=== PATIENT | female | born 1950 | race Caucasian/White ===

== ENCOUNTER 2022-04-03 06:17 | Observation (INO) | payer OTHER ==
--- NOTE | 2022-03-29 10:48 | RAD REPORT ---
EXAM DESCRIPTION: RAD - Chest Pa And Lat (2 Views) - 03/29/2022 10:42 am CLINICAL HISTORY: pre op for surgery COMPARISON: No comparisons FINDINGS: Lines: None. Lungs: No evidence of edema or pneumonia. Pleural: No significant pleural effusions or pneumothorax. Cardiac: The heart size is within normal limits. Mediastinum: Within normal limits. Bones: No acute fractures. Other: None IMPRESSION: No acute cardiopulmonary disease.
[2022-03-29 10:53] LABS: Absolute Lymphocytes (CBC) 2.5 K/uL (0.7-4.9); Hematocrit 42.5 % (36.0-45.0); Lymphocytes % 37.9 % (15.3-44.8); MCV 96.1 fL (80-100); MPV 7.5 fL (7.6-11.3); RBC Red Blood Cell Count 4.42 M/uL (3.86-4.86)
[2022-03-29 10:58] LABS: Protime INR 1.06
[2022-03-29 11:15] LABS: SARS-CoV-2 Antigen Rapid Res Negative (Negative)
[2022-03-29 11:15] LABS: Potassium 4.5 mmol/L (3.5-5.1)
--- NOTE | 2022-03-30 17:24 | EKG ---
Test Date: 2022-03-29 Test Time: 10:27:57 Choreography Director: PILAR MEASUREMENT RESULTS: Intervals: Rate: 71 [place]: 176 QRSD: 86 QT: 386 QTc: 419 [place]: P: 77 [place]: 176 QRS: 68 T: 86 INTERPRETIVE STATEMENTS: Normal sinus rhythm Nonspecific T wave abnormality Abnormal ECG No previous ECG available for comparison Electronically Signed On 03-30-22 17:24:10 AUDIO VISUAL TECHNICIAN by Laurent Roa
[2022-04-03] MEDS ORDERED: Ringers Lactate 1,000 ML IV ONE ×2 (06:49→09:06)
[2022-04-03] MEDS ORDERED: CEFAZOLIN SODIUM 2 GM/VIAL ONE (06:49)
[2022-04-03] MEDS ORDERED: dexAMETHasone 4 MG/ML VIAL ONE ×2 (07:00→07:15)
[2022-04-03] MEDS ORDERED: LIDOCAINE 1% MPF 2 ML AMPULE ONE (07:00)
[2022-04-03] MEDS ORDERED: LIDOCAINE 1% MPF 5 ML VIAL ONE (07:14)
[2022-04-03] MEDS ORDERED: MIDAZOLAM HCL 2 MG/2 ML INJ ONE (07:15)
[2022-04-03] MEDS ORDERED: FENTANYL CITR 100 MCG/2 ML ONE ×2 (07:15→09:44)
[2022-04-03] MEDS ORDERED: TRANEXAMIC ACID 1,000 MG/10 ML VIAL IV ONE (07:33)
[2022-04-03] MEDS ORDERED: propofoL 200 MG/20 ML VIAL IV ONE (08:00)
[2022-04-03] MEDS ORDERED: LIDOCAINE 2% MPF 5 ML VIAL ONE (08:01)
[2022-04-03] MEDS ORDERED: ROCURONIUM 50 MG/5 ML VIAL IV ONE (08:02)
[2022-04-03] MEDS ORDERED: ONDANSETRON 4 MG/2 ML VIAL ONE (08:03)
[2022-04-03] MEDS ORDERED: dexAMETHasone 10 MG/ML VIAL ONE (08:58)
[2022-04-03] MEDS ORDERED: GLYCOPYRROLATE 0.2 MG/ML SYR ONE ×2 (09:24→10:24)
[2022-04-03] MEDS ORDERED: NEOSTIGMINE 1 MG/ML -5 ML ONE (10:25)
[2022-04-03] MEDS: HYDROMORPHONE HCL 1 MG/ML INJ ONE ×4 (11:09→11:46)
--- NOTE | 2022-04-03 11:12 | P.BOP ---
Preoperative diagnosis: right knee osteoarthritis Postoperative diagnosis: same Primary procedure: right total knee arthroplasty Quilt Maker: NONE,NONE Estimated blood loss: 40 cc Specimen: right knee bone remnants Findings: see dictation Anesthesia: General Complications: None Implants: Biomet Jovana 6 CR femur, D tibia, 29 patella, 10 CR poly Fluids & blood products: per anesthesia record; TT: 70 mins @ 300 mmHg Transferred to: Recovery Room Condition: Good
[2022-04-03] MEDS ORDERED: DOCUSATE NA 100 MG CAP PO PRN (11:13)
[2022-04-03] MEDS ORDERED: ACETAMINOPHEN 325 MG TABLET PO PRN (11:13)
[2022-04-03] MEDS ORDERED: ONDANSETRON 4 MG/2 ML VIAL IV PRN (11:13)
[2022-04-03] MEDS ORDERED: TRAMADOL HCL 50 MG TAB PO PRN (11:15)
--- OUTSIDE RECORDS SUMMARY | 2022-04-03 11:23 | XMS REPORT | Continuity of Care Document ---
:1950 Author Organization [facility] t Address [address] [place] [address] Care Team Providers Name Role Phone Pcp, Patient Does Not Have A Primary Care Physician [id number] Alex Woods MD Attending Clinician ALEX WOODS Attending Clinician Unavailable Jackson Cunningham Attending Clinician Payers Payer Name Policy Type Policy Number Effective Date Expiration Date S ource Problems Condition Condition Condition Status Onset Resolution Last Treating Co mments Source Name Details Category Date Date Treatment Clinician Date No known No known Disease Unive rs active active ity of problems problems [facility] Allergies, Adverse Reactions, Alerts Allergy Allergy Status Severity Reaction(s) Onset Inactive Treating Comm ents Source Name Type Date Date Clinician NO KNOWN Drug Active Univers ALLERGIE Class ity of S [facility] Social History Social Habit Start Date Stop Date Quantity Comments Source History SDOH University o f Alcohol Std [place] [facility] Drinks Branch History SDOH University o f Alcohol Binge [place] [facility] Branch History SDOH University o f Alcohol Comment [place] [facility] Exposure to Not sure University of SARS-CoV-2 [facility] (event) Branch Tobacco use and 2021-01-18 2021-01-18 Never used Universit y of exposure 00:00:00 00:00:00 [facility] Branch Alcohol intake 2021-01-18 2021-01-18 Lifetime University of 00:00:00 00:00:00 non-drinker [place] [facility] (finding) Branch History SDOH 2021-01-18 2021-01-18 1 University o f Alcohol Frequency 00:00:00 00:00:00 [place] [facility] Sex Assigned At [birth year] Universit y of 00:00:00 00:00:00 [facility] Smoking Status Start Date Stop Date Source Never smoker [facility] Medications Ordered Filled Start Stop Current Ordering Indication Dosage Frequency Signature Comments Components Source Medication Medication Date Date Medication? Clinician (SIG) Name Name citalopram 2020-04 Yes 10mg Take 10 mg U nivers (CELEXA) 10 0-14 by mouth ity of mg tablet 08:52: daily. [address] oxymetazoli 2020-04 Yes Use in [facility] ers ne HCl 0-14 each ity of (NASAL 08:52: nostril. [place] SPRAY [facility] Medical [facility] SIN[facility] Branch NASAL) citalopram 2020-04 Yes 10mg Take 10 mg U nivers (CELEXA) 10 0-14 by mouth ity of mg tablet 08:52: daily. [address] oxymetazoli 2020-04 Yes Use in [facility] ers ne HCl 0-14 each ity of (NASAL 08:52: nostril. [place] SPRAY [facility] Medical [facility] SIN[facility] Branch NASAL) montelukast 2020-04 Yes 10mg Take 10 mg Univers (SINGULAIR) 0-14 by mouth. ity of 10 mg 08:52: [place] tablet 30 [facility] [place] gabapentin 2020-04 Yes 400mg Take 400 Un terry 400 mg 0-14 mg by ity of capsule 08:52: mouth 3 [place] 30 (three) Medical times Branch daily. oxyCODONE-a 2020-04 Yes 1{tbl} Take 1 Un terry cetaminophe 0-14 tablet by ity of n 08:52: mouth [place] (PERCOCET) 30 every 4 Medica l 10-325 mg (four) Branch per tablet hours as needed for Pain. citalopram 2020-04 Yes 10mg Take 10 mg U nivers 10 mg 0-14 by mouth ity of tablet 08:52: daily. [address] ALPRAZolam 2020-04 Yes 1mg Take 1 mg Un terry (XANAX) 1 0-14 by mouth 3 ity of mg tablet 08:52: (three) [place] 30 times Medical daily. Branch montelukast 2020-04 Yes 10mg Take 10 mg Univers (SINGULAIR) 0-14 by mouth. ity of 10 mg 08:52: [place] tablet 30 [facility] [place] gabapentin 2020-04 Yes 400mg Take 400 Un terry 400 mg 0-14 mg by ity of capsule 08:52: mouth 3 [place] 30 (three) Medical times Branch daily. oxyCODONE-a 2020-04 Yes 1{tbl} Take 1 Un terry cetaminophe 0-14 tablet by ity of n 08:52: mouth [place] (PERCOCET) 30 every 4 Medica l 10-325 mg (four) Branch per tablet hours as needed for Pain. citalopram 2020-04 Yes 10mg Take 10 mg U nivers 10 mg 0-14 by mouth ity of tablet 08:52: daily. [address] ALPRAZolam 2020-04 Yes 1mg Take 1 mg Un terry (XANAX) 1 0-14 by mouth 3 ity of mg tablet 08:52: (three) [place] 30 times [facility] daily. Branch Vital Signs Vital Name Observation Time Observation Value Comments Source Systolic blood 2021-01-18 13:47:00 141 mm[Hg] [facility]iver [facility] Diastolic blood 2021-01-18 13:47:00 79 mm[Hg] [facility] Heart rate 2021-01-18 13:47:00 61 /min [facility] Body height 2021-01-18 13:47:00 160 cm [facility] Body weight 2021-01-18 13:47:00 72.576 kg [facility] BMI 2021-01-18 13:47:00 28.34 kg/m2 [facility] Procedures Procedure Date / Time Performed Performing Clinician Sourlinh e XR KNEE 3 VW 2021-01-18 14:18:[address] [facility] Encounters Start End Encounter Admission Attending Care Care Encounter Source Date/Time Date/Time Type Type Clinicians Facility Department ID 2022-02-25 Outpatient [facility] [id number] Common 17:12:01 [facility] 2021-11-01 Outpatient [facility] [id number] Common 12:48:00 [facility] 2021-08-27 Outpatient [facility] [id number] Common 13:17:14 [facility] 2021-05-02 Outpatient [facility] Common 14:27:27 [facility] 2021-01-18 2021-01-18 Hospital [facility] [id number] Univers 08:55:00 23:59:00 Encounter Alex [facility] [id number] ity of [place] [id number] Lalito as Enoch?Blea [phone] Al americo alexandr [address] [facility] 2021-01-18 2021-01-18 Outpatient [facility] [id number] Univers 08:55:00 08:55:00 ALEX [id number] 2021-01-18 2021-01-18 Office Jackson Johnson [facility] [id number] Univers 08:38:21 08:53:21 Visit Alex Woods [facility] [id number] ity of [place] [id number] Lalito as Enoch?Blea [phone] Al earnestragini deshaun [address] [facility] 2021-01-18 2021-01-18 Outpatient R [facility] [id number] Univers 08:30:00 08:30:00 ALEX [facility] Results This patient has no known results.
[2022-04-03 11:36] LABS: Hematocrit 38.9 % (36.0-45.0)
--- NOTE | 2022-04-03 11:36 | RAD REPORT ---
EXAM DESCRIPTION: RAD - Knee Right 2 View - 04/03/2022 11:27 am CLINICAL HISTORY: Post Op COMPARISON: No comparisons FINDINGS/IMPRESSION: Status post right total knee arthroplasty. No evidence immediate hardware compl ications or acute fractures. Small volume of fluid and gas within the joint is not unexpected. Normal alignment.
[2022-04-03 11:56] VITALS: O2SAT 97
[2022-04-03] MEDS: MORPHINE 2 MG/ML SYR IV PRN ×2 (13:27→18:28)
[2022-04-03] MEDS: GABAPENTIN 300 MG CAP PO SCH ×3 (13:27→20:16)
[2022-04-03] MEDS: ALPRAZOLAM 1 MG TABLET PO SCH ×2 (15:52→20:16)
[2022-04-03 16:57] VITALS: BMI 28.7
[2022-04-03] MEDS: CEFAZOLIN 1 GM in NA CHLORIDE 0.9% 50 ML IVPB SCH (17:20)
[2022-04-03] MEDS ORDERED: INFLUENZA VACCINE (for 6+ mo) 0.5 ML DOSE IMVAC ONE (18:00)
[2022-04-03] MEDS: HYDROCODONE/APAP 7.5/325 MG TAB PO PRN (20:20)
[2022-04-03] MEDS ORDERED: OLANZapine 2.5 MG TAB PO SCH (21:00)
[2022-04-04] MEDS: MORPHINE 2 MG/ML SYR IV PRN ×2 (01:12→05:24)
[2022-04-04] MEDS: CEFAZOLIN 1 GM in NA CHLORIDE 0.9% 50 ML IVPB SCH ×2 (01:12→10:17)
[2022-04-04] MEDS: HYDROCODONE/APAP 7.5/325 MG TAB PO PRN ×2 (01:54→07:40)
[2022-04-04 04:55] LABS: Hematocrit 35.6 % (36.0-45.0)
[2022-04-04] MEDS ORDERED: ENOXAPARIN 30 MG/0.3 ML SQ SCH (06:00)
[2022-04-04] MEDS ORDERED: PANTOPRAZOLE 40MG TABLET PO SCH (06:30)
[2022-04-04 08:09] VITALS: BP 119/81; TEMP 97.8
[2022-04-04] MEDS ORDERED: CITALOPRAM 10 MG TABLET PO SCH (09:00)
[2022-04-04] MEDS ORDERED: MONTELUKAST 10 MG TAB PO SCH (09:00)
[2022-04-04] MEDS ORDERED: [UNRECOGNIZED DRUG - OTHER] PO SCH (09:00)
[2022-04-04] MEDS ORDERED: FEXOFENADINE PO SCH (09:00)
[2022-04-04] MEDS ORDERED: PSEUDOEPHEDRINE PO SCH (09:00)
[2022-04-04] MEDS ORDERED: CELECOXIB 100 MG CAPSULE PO SCH (09:00)
[2022-04-04] MEDS: GABAPENTIN 300 MG CAP PO SCH (10:16)
[2022-04-04] MEDS: ALPRAZOLAM 1 MG TABLET PO SCH (10:18)
--- NOTE | 2022-04-04 12:12 | P.DS ---
Admission Date: 04/03/22 Discharge Date: 04/04/22 Disposition: DC HOME/HOME HEALTH CARE Discharge Condition: GOOD Consultations: none Procedures: R TKA 03/24/2022 Brief History of Present Illness: 82-year-old female that underwent right total knee arthroplasty on April 03, 2022 without complication. Hospital Course: Patient was admitted to the floor postoperatively in stable condition. Physical therapy was consulted to aid with mobilization. Pain was controlled and her vital signs remained stable postoperatively. She was discharged on April 04, 2022 in stable condition. She will begin Xarelto tomorrow for DVT prophylaxis. She was started on Lovenox while in the hospital for DVT prophylaxis. She will follow-up in clinic in 2 weeks for wound check. Vital Signs/Physical Exam: Temp Pulse Resp BP Pulse Ox 97.8 F 75 16 119/81 95 04/04/22 08:00 04/04/22 08:00 04/04/22 08:00 04/04/22 08:00 04/04/22 08:00 Laboratory Data at Discharge: WBC 6.50 K/uL (4.3-10.9) 03/29/22 10:33 Hgb 12.1 g/dL (12.0-15.0) 04/04/22 04:20 Hct 35.6 % (36.0-45.0) L 04/04/22 04:20 Plt Count 287 K/uL (152-406) 03/29/22 10:33 PT 11.7 SECONDS (9.5-12.5) 03/29/22 10:33 INR 1.06 03/29/22 10:33 APTT 32.0 SECONDS (24.3-36.9) 03/29/22 10:33 Sodium 137 mmol/L (136-145) 03/29/22 10:33 Potassium 4.5 mmol/L (3.5-5.1) 03/29/22 10:33 BUN 22 mg/dL (7-18) H 03/29/22 10:33 Creatinine 0.89 mg/dL (0.55-1.02) 03/29/22 10:33 Glucose 115 mg/dL (74-106) H 03/29/22 10:33 Home Medications: ALPRAZolam [Xanax*] 1 tab PO TID 03/29/22 Citalopram [Celexa*] 1 tab PO DAILY 03/29/22 Fexofenadine/Pseudoephedrine [Dori-D 24 Hour Tablet] 1 tab PO DAILY 03/29/22 Gabapentin 1 tab PO QID 03/29/22 Montelukast [Singulair*] 1 tab PO DAILY 03/29/22 OLANZapine [Zyprexa*] 1 tab PO BEDTIME 03/29/22 Omeprazole [Prilosec] 1 tab PO DAILY 03/29/22 Oxycodone HCl/Acetaminophen [Oxycodone-Acetaminophen 10-325] 1 tab PO QID 03/29/22 Physician Discharge Instructions: Keep dressing clean dry and intact. Use JELENA hose for 2 weeks postoperatively. Begin Xarelto tomorrow April 05 with breakfast and take once daily. Follow- up with Dr. Linder in 2 to 3 weeks. Diet: Regular Activity: Weight bearing as tolerated Followup: Yaniv Linder MD [Primary Care Provider] - 1-2 Weeks
--- NOTE | 2022-04-04 15:59 | P.OP ---
Preoperative diagnosis: right knee osteoarthritis Postoperative diagnosis: same Primary procedure: right total knee arthroplasty Anesthesia: general Estimated blood loss: 40 cc Specimen: right knee bone remnants Findings: see dictation Operative Technique: Indication For Procedure: Pam is an 72 year-old female presenting to my clinic with signs, symptoms and x-ray findings consistent with right knee osteoarthritis. I discussed with the patient at length risks and benefits associated with operative and nonoperative treatment. She had failed conservative treatment measures including corticosteroid injections, viscosupplementation injections and had significant difficulties with ADLs secondary to her pain. We discussed operative treatment and elected to proceed with right total knee arthroplasty. She expressed understanding and elected to proceed with operative treatment. Description Of Procedure: After informed consent was obtained, the patient was identified in the preoperative holding area. The right lower extremity was marked. The patient was then taken to the PACU where she underwent a right lower extremity adductor canal block performed by Anesthesia. She was then taken to the operating room, transferred to the operating table in supine fashion, and placed under general anesthesia. Her right lower extremity was then prepped and draped in usual sterile fashion. A time-out was initiated. The correct patient and procedure were confirmed and identified. The patient did receive her preoperative prophylactic antibiotics. The right lower extremity was then exsanguinated and tourniquet was inflated to 300 mmHg. Approximately 15 cm longitudinal incision was made centered over the anterior aspect of the right knee. Dissection was then taken to the extensor mechanism and a medial parapatellar arthrotomy was performed. The patella was everted and dislocated laterally with some difficulty and the knee was flexed and the fat pad was excised. Medial meniscus, lateral meniscus and ACL were all excised exposing the distal femur. Excess hypertrophic synovium was also excised within the suprapatellar pouch. The patient had an MRI of her right knee preoperatively for surgical planning and creation of cutting blocks. The cutting block was then placed over the distal femur and pins were then placed. The distal femoral cutting block was then placed over the pins. Knee joint was then used to ensure proper depth cut and the distal femur was then cut. The chamfer cutting guide was then placed over the distal end of the femur. Anterior, posterior cuts as well as anterior and posterior chamfer cuts were then made again confirming proper depth of the cut using an Jorge wing. Excess bone remnants were then sent to pathology for further evaluation. Next, attention was taken to the proximal tibia. A tibial jig and tibial cutting block was then placed on proximal aspect of the tibia and locked into position. Pins were then placed and alignment guide was then used to confirm proper alignment of the cut and then coronal and sagittal planes. Once this was confirmed, the cutting jig was placed over the pins and the proximal tibia was cut. Sizing trays were then selected and size 10 mm spacer was used. After this was completed there was good overall balance in flexion and extension with the 10 mm spacer. Next, the trial implants were then placed using the size 6 standard CR femur and a size D tibia with an 10 mm poly. There was overall good range of motion and good stability trial implants were then removed. The wound was then irrigated thoroughly with normal saline and the knee was then injected with 30 cc of 0.5% Marcaine both in the posterior capsule and medial and lateral gutters as well as quadriceps tendon and periosteum. The tibia was then punched and marked after the patella button was placed. The femur was drilled. The cement was then prepared on the back table. Cement was then placed first on the tibial surface followed by size D tibia. Excess cement was removed with Wright elevators. Size 6 standard CR femur was then placed on the distal femur after cement was placed on the distal femur. Excess cement was then removed and a size 10 mm trial poly was then placed. The knee was held in extension as the cement hardened. Undersurface of the patella was prepared debriding osteophytes using rongeurs as well as osteophytes had been debrided off the proximal tibia with rongeurs. Cement was placed on the undersurface of the patella after it was cut and a size 29 patella was placed. Once the cement was hardened, the knee was ranged, there was good overall stability both in flexion, extension and as well as stability with varus and valgus stresses. Trial poly was then sánchez oniel and a size 10 mm CR poly was then placed and locked into position. The knee was then ranged again. There was good overall range of motion both for flexion and extension with good stability. The wound was then irrigated again thoroughly with normal saline using pulse lavage. Tourniquet was let down. Hemostasis was achieved using Bovie electrocautery. Extensor mechanism was then approximated using a #1 Vicryl both in interrupted and running fashion. The fascia was then approximated using 0 Vicryl. Subcutaneous tissue was approximated with a 2-0 Vicryl. Skin was approximated using abner. Sterile dressings were applied. The patient was awakened and transferred back in stable condition Complications: None Implants: Biomet Jovana Persona 6 CR femur, D tibia, 10 CR poly, 29 patella Fluids & blood products: per anesthesia record; TT: 70 mins @ 300 mmHg Transferred to: Recovery Room Condition: Good
== END 2022-04-04 12:57 | disposition home health service (06) ==
LOC: OR 06:17 → 2ND 11:13
PROVIDERS: ADMIT Orthopaedic Surgery Sports Medicine; ATTEND Orthopaedic Surgery Sports Medicine
PROC: 0SRC069 Replacement of Right Knee Joint with Oxidized Zirconium on Polyethylene Synthetic Substitute, Cemented, Open Approach (ICD-10-PCS; principal; 2022-04-03 08:00)
DX: M17.11 Unilateral primary osteoarthritis, right knee (principal); Z20.822 Contact with and (suspected) exposure to COVID-19
CPT/HCPCS: 36415; 71046; 80048; 85014; 85018; 85025; 85610; 85730; 87811; 88304; 88311; 93005; 94010; 97116; 97139; 97161; 97530; C1776; J0690; J1100; J1170; J1650; J2001; J2250; J2270; J2405; J2704; J2710; J3010; J7120

== ENCOUNTER 2023-01-22 05:59 | Observation (INO) | payer OTHER ==
[2023-01-17 10:07] LABS: Absolute Lymphocytes (CBC) 2.4 K/uL (0.7-4.9); Hematocrit 41.6 % (36.0-45.0); Lymphocytes % 39.1 % (15.3-44.8); MCV 96.1 fL (80-100); MPV 7.2 fL (7.6-11.3); Platelets 270 thou/uL (152-406); RBC Red Blood Cell Count 4.33 M/uL (3.86-4.86)
--- NOTE | 2023-01-17 10:09 | RAD REPORT ---
EXAM DESCRIPTION: RAD - Chest Pa And Lat (2 Views) - 01/17/2023 10:03 am CLINICAL HISTORY: pre op for surgery, history of breast cancer COMPARISON: Chest Pa And Lat (2 Views) dated 03/29/2022 FINDINGS: Lines: None. Lungs: No evidence of edema or pneumonia. Pleural: No significant pleural effusions or pneumothorax. Cardiac: The heart size is within normal limits. Mediastinum: Within normal limits. Bones: No acute fractures. Other: None IMPRESSION: No acute cardiopulmonary disease.
[2023-01-17 10:15] LABS: Protime INR 0.94
[2023-01-17 10:18] LABS: Potassium 5.1 mEq/L (3.5-5.1)
--- NOTE | 2023-01-20 17:12 | EKG ---
Test Date: 2023-01-17 Test Time: 09:50:16 Wooden Fence Erector: PILAR MEASUREMENT RESULTS: Intervals: Rate: 66 [place]: 174 QRSD: 84 QT: 418 QTc: 438 [place]: P: 68 [place]: 174 QRS: 53 T: 59 INTERPRETIVE STATEMENTS: Normal sinus rhythm Normal ECG No previous ECG available for comparison Electronically Signed On 01-20-23 17:06:13 CDT by Laurent Roa
[2023-01-22] MEDS ORDERED: FENTANYL CITR 100 MCG/2 ML ONE (06:29)
[2023-01-22] MEDS ORDERED: LIDOCAINE 2% MPF 5 ML VIAL ONE ×3 (06:29→08:37)
[2023-01-22] MEDS ORDERED: MIDAZOLAM HCL 2 MG/2 ML INJ ONE (06:29)
[2023-01-22] MEDS ORDERED: propofoL 200 MG/20 ML VIAL IV ONE (06:29)
[2023-01-22] MEDS ORDERED: Ringers Lactate 1,000 ML IV ONE ×2 (06:30→10:18)
[2023-01-22] MEDS ORDERED: CEFAZOLIN SODIUM 1 GM/VIAL ONE (06:30)
[2023-01-22] MEDS ORDERED: ONDANSETRON 4 MG/2 ML VIAL ONE (06:34)
[2023-01-22] MEDS ORDERED: dexAMETHasone 4 MG/ML VIAL ONE (06:39)
[2023-01-22] MEDS ORDERED: EPINEPHRINE/PF 1 MG/ML AMP ONE (06:39)
[2023-01-22] MEDS ORDERED: MAGNESIUM SULFATE 1 gm IVPB 1 GM/100 ML BAG IV ONE (06:40)
[2023-01-22] MEDS ORDERED: BUPIVACAINE 0.25% PF 30 ML VIAL ONE (06:40)
[2023-01-22] MEDS ORDERED: CELECOXIB 100 MG CAPSULE ONE (06:51)
[2023-01-22] MEDS ORDERED: GABAPENTIN 100 MG CAP ONE (06:51)
[2023-01-22] MEDS ORDERED: ACETAMINOPHEN 500 MG TAB ONE (06:52)
[2023-01-22] MEDS ORDERED: Oxycodone HCl/Acetaminophen 5/325 MG TAB ONE (06:52)
[2023-01-22] MEDS ORDERED: DEXMEDETOMIDINE HCL 200 MCG/2 ML VIAL ONE (06:58)
[2023-01-22] MEDS ORDERED: TRANEXAMIC ACID 1,000 MG/10 ML VIAL IV ONE (07:45)
[2023-01-22] MEDS ORDERED: KETAMINE HCL IN 0.9 % NACL 50 MG/5 ML SYRINGE IV ONE (08:37)
--- NOTE | 2023-01-22 10:26 | P.BOP ---
Preoperative diagnosis: left knee osteoarthritis Postoperative diagnosis: same Primary procedure: left total knee arthroplasty Substation Manager: NONE,NONE Estimated blood loss: 40 cc Specimen: left knee bone remnants Findings: see dictation Anesthesia: General Complications: None Implants: Biomet Jovana Persona 6 CR femur, D tibia, 10 CR poly, 29 patella Fluids & blood products: per anesthesia record Transferred to: Recovery Room Condition: Good
[2023-01-22] MEDS ORDERED: ACETAMINOPHEN 325 MG TABLET PO PRN (10:27)
[2023-01-22] MEDS ORDERED: DOCUSATE NA 100 MG CAP PO PRN (10:27)
[2023-01-22] MEDS ORDERED: ONDANSETRON 4 MG/2 ML VIAL IV PRN (10:27)
[2023-01-22] MEDS ORDERED: HYDROCODONE/APAP 7.5/325 MG TAB PO PRN (10:27)
[2023-01-22] MEDS ORDERED: TRAMADOL HCL 50 MG TAB PO PRN (10:29)
[2023-01-22] MEDS: HYDROMORPHONE HCL 1 MG/ML INJ ONE ×4 (10:57→11:21)
--- OUTSIDE RECORDS SUMMARY | 2023-01-22 11:03 | XMS REPORT | Continuity of Care Document ---
:1950 Author Organization [facility] t Address [address] [facility] [address] [place] [address] Care Team Providers Name Role Phone Pcp, [...] rs active active ity of problems problems [facility] Allergies, Adverse Reactions, Alerts Allergy Allergy Status Severity Reaction(s) Onset Inactive Treating Comm ents Source Name Type Date Date Clinician NO KNOWN Drug Active Univers ALLERGIE Class ity of S [facility] Social History Social Habit Start Date Stop Date Quantity Comments Source History SDOH University o f Alcohol Std [place] [facility] Dr[facility] History SDAK University o f Alcohol Binge [place] [facility] Branch History SDOH University o f Alcohol Comment [place] [facility] ical Branch Exposure to Not sure University of SARS-CoV-2 [facility] (event) Branch Tobacco use and 2021-01-18 2021-01-18 Never used Universit y of exposure 00:00:00 00:00:00 [facility] Branch Alcohol intake 2021-01-18 2021-01-18 Lifetime University of 00:00:00 00:00:00 non-drinker [place] [facility] (finding) Branch History SDOH 2021-01-18 2021-01-18 1 University o f Alcohol Frequency 00:00:00 00:00:00 [place] M ed[facility] Sex Assigned At [birth year] [facility] y of 00:00:00 00:00:00 [facility] Smoking Status Start Date Stop Date Source Never smoker [facility] Medications Ordered Filled Start Stop Current Ordering Indication Dosage Frequency Signature Comments Components Source Medication Medication Date Date Medication? Clinician (SIG) Name Name citalopram 2020-04 Yes 10mg Take 10 mg U nivers (CELEXA) 10 0-14 by mouth ity of mg tablet 08:52: daily. [address] oxymetazoli 2020-04 Yes Use in [facility] ers ne HCl 0-14 each ity of (NASAL 08:52: nostril. [place] SPRAY [facility] Medical [facility] SINUS Branch NASAL) citalopram 2020-04 Yes 10mg Take 10 mg U nivers (CELEXA) 10 0-14 by mouth ity of mg tablet 08:52: daily. [address] oxymetazoli 2020-04 Yes Use in [facility] ers ne HCl 0-14 each ity of (NASAL 08:52: nostril. [place] SPRAY [facility] Medical [facility] SINUS Branch NASAL) montelukast 2020-04 Yes 10mg Take 10 mg Univers (SINGULAIR) 0-14 by mouth. ity of 10 mg 08:52: [place] tablet 30 Medical Branch gabapentin 2020-04 Yes 400mg Take 400 Un [...] by mouth ity of tablet 08:52: daily. [address] ALPRAZolam 2020-04 Yes 1mg Take 1 mg Un terry (XANAX) 1 0-14 by mouth 3 ity of mg tablet 08:52: (three) [place] 30 times Medical daily. Branch montelukast 2020-04 Yes 10mg Take 10 mg Univers (SINGULAIR) 0-14 by mouth. ity of 10 mg 08:52: [place] tablet 30 Medical Branch gabapentin 2020-04 Yes 400mg Take 400 Un [...] by mouth ity of tablet 08:52: daily. [address] ALPRAZolam 2020-04 Yes 1mg Take 1 mg Un terry (XANAX) 1 0-14 by mouth 3 ity of mg tablet 08:52: (three) [place] 30 times [facility] daily. Branch Vital Signs Vital Name Observation Time Observation Value Comments Source Systolic blood 2021-01-18 13:47:00 141 mm[Hg] Univer sity [facility] Diastolic blood 2021-01-18 13:47:00 79 mm[Hg] [facility] Heart rate 2021-01-18 13:47:00 61 /min [facility] Body height 2021-01-18 13:47:00 160 cm [facility] Body weight 2021-01-18 13:47:00 72.576 kg [facility] BMI 2021-01-18 13:47:00 28.34 kg/m2 [facility] Procedures Procedure Date / Time Performed Performing Clinician Sourlinh e XR KNEE 3 VW 2021-01-18 14:18:10 Alex Woods [facility] Encounters Start End Encounter Admission Attending Care Care Encounter Source Date/Time Date/Time Type Type Clinicians Facility Department ID 2022-11-19 Outpatient [facility] [id number] Common 11:03:01 [id number] [facility] 2022-06-12 Outpatient [facility] [id number] Common 10:31:00 [id number] [facility] 2022-06-11 Outpatient [facility] [id number] Common 08:39:02 [id number] [facility] 2022-04-16 Outpatient [facility] [id number] Common 14:23:02 [id number] [facility] 2022-02-25 Outpatient [facility] [id number] Common 17:12:01 [facility] 2021-11-01 Outpatient [facility] [id number] Common 12:48:00 [facility] 2021-08-27 Outpatient [facility] [id number] Common 13:17:14 [facility] 2021-05-02 Outpatient [facility] [id number] Common 14:27:27 [facility] 2021-01-18 2021-01-18 [facility] [id number] Univers 08:55:00 23:59:00 Encounter Alex Hsu [facility] [id number] ity of [place] [id number] Lalito as Enoch?Blea [id number] Wy americo doe [address] [place] [facility] 2021-01-18 2021-01-18 Outpatient [facility] [id number] Univers 08:55:00 08:55:00 [facility]LEX [id number] [facility]-01-[facility] 2021-01-18 Office Jackson Johnson [facility] [id number] Univers 08:38:21 08:53:21 Visit Alex Woods [facility] [id number] ity of [place] [id number] Lalito as Enoch?Blea [id number] Wy americo doe [address] [place] [facility] 2021-01-18 2021-01-18 [facility] [id number] Univers 08:30:00 08:30:00 ALEX [facility] Results This patient has no known results.
[2023-01-22 11:09] LABS: Hematocrit 39.1 % (36.0-45.0)
[2023-01-22 11:51] VITALS: BMI 27.3
--- NOTE | 2023-01-22 12:42 | RAD REPORT ---
EXAM DESCRIPTION: RAD - Knee Left 2 View - 01/22/2023 10:52 am CLINICAL HISTORY: Post Op COMPARISON: No comparisons FINDINGS: Left total knee arthroplasty is present. No unexpected immediate postoperative finding. Mi ld air in the joint space. Midline surgical abner noted.
[2023-01-22] MEDS: GABAPENTIN 300 MG CAP PO SCH ×3 (13:32→20:52)
[2023-01-22] MEDS: ALPRAZOLAM 1 MG TABLET PO SCH ×2 (13:32→20:56)
[2023-01-22] MEDS: HYDROCODONE/APAP 7.5/325 MG TAB PO PRN ×2 (13:38→17:32)
--- NOTE | 2023-01-22 17:10 | P.OP ---
Preoperative diagnosis: left knee osteoarthritis Postoperative diagnosis: same Primary procedure: left total knee arthroplasty Anesthesia: general Estimated blood loss: 40 cc Specimen: left Knee bone remnants Findings: see dictation Operative Technique: Indication For Procedure: Pam is a 72 year-old female presenting to my clinic with signs, symptoms and x-ray findings consistent with severe left knee osteoarthritis. I discussed with the patient at length risks and benefits associated with operative and nonoperative treatment. She had failed conservative treatment measures and had significant difficulties with ADLs secondary to her pain. We discussed operative treatment and elected to proceed with left total knee arthroplasty. She expressed understanding and elected to proceed with operative treatment. Description Of Procedure: After informed consent was obtained, the patient was identified in the preoperative holding area. The left lower extremity was marked. The patient was then taken to the PACU where she underwent a left lower extremity adductor canal block performed by Anesthesia. She was then taken to the operating room, transferred to the operating table in supine fashion, and placed under general anesthesia. The left lower extremity was then prepped and draped in usual sterile fashion. A time-out was initiated. The correct patient and procedure were confirmed and identified. The patient did receive her preoperative prophylactic antibiotics. The left lower extremity was then exsanguinated and tourniquet was inflated to 300 mmHg. Approximately 15 cm longitudinal incision was made centered over the anterior aspect of the left knee. Dissection was then taken to the extensor mechanism and a medial parapatellar arthrotomy was performed. The patella was everted and dislocated laterally and the knee was flexed in the fat pad. Medial and lateral meniscus and ACL were all excised exposing the distal femur. Excess hypertrophic synovi um was also excised within the suprapatellar pouch. The patient had an MRI of her left knee preoperatively for surgical planning and creation of cutting blocks. The cutting block was then placed over the distal femur and pins were then placed. The distal femoral cutting block was then placed over the pins. An jorge wing was then used to ensure proper depth cut and the distal femur was then cut. The chamfer cutting guide was then placed over the distal end of the femur. Anterior, posterior cuts as well as anterior and posterior chamfer cuts were then made again confirming proper depth of the cut using an Jorge wing. Excess bone remnants were then sent to pathology for further evaluation. Next, attention was taken to the proximal tibia. A tibial jig and tibial cutting block was then placed on proximal aspect of the left tibia and locked into position. Pins were then placed and alignment guide was then used to confirm proper alignment of the cut and then coronal and sagittal planes. Once this was confirmed, the cutting jig was placed over the pins and the proximal tibia was cut. Sizing trays were then selected and size 10 mm spacer was used and there was good overall balance in flexion and extension. Next, the trial implants were then placed using the size 6 standard CR femur and a size D tibia and an 10 mm CR poly. There was overall good range of motion and good stability. The trial implants were then removed. The wound was then irrigated thoroughly with normal saline and the knee was then injected with 20 cc of 0.5% Marcaine both in the posterior capsule and medial and lateral gutters as well as quadriceps tendon and periosteum. The tibia was then punched. The femur was drilled. The cement was then prepared on the back table. Cement was then placed first on the tibial surface followed by size D tibia. Excess cement was removed with Groton elevators. Size 6 standard CR femur was then placed on the distal femur after cement was placed on the distal femur. Excess cement was then removed and a size 10 mm CR trial poly was then placed. The knee was held in extension as the cement hardened. Undersurface of the patella was prepared debriding osteophytes using rongeurs as well as osteophytes.. Cement was placed on the undersurface of the patella after it was cut and a size 29 patella was placed. Once the cement was hardened, the knee was ranged, there was good overall stability both in flexion, extension and as well as stability with varus and valgus stresses. Trial poly was then removed and a size 10 mm CR poly was then placed and locked into position. The knee was then ranged again. There was good overall range of motion both for flexion and extension with good stability. The wound was then irrigated again thoroughly with normal saline using pulse lavage. Tourniquet was let down. Hemostasis was achieved using Bovie electrocautery. Extensor mechanism was then approximated using a #1 Vicryl both in interrupted and running fashion. The fascia was then approximated using 0 Vicryl. Subcutaneous tissue was approximated with a 2-0 Vicryl. Skin was approximated using abner. Sterile dressings were applied. The patient was awakened and transferred back in stable condition. Complications: None Implants: Biomet Jovana persona 6 CR femur, D tibia, 29 patella, 10 CR poly Fluids & blood products: per anesthesia record Transferred to: Recovery Room Condition: Good
[2023-01-22] MEDS: CEFAZOLIN 1 GM in NA CHLORIDE 0.9% 50 ML IVPB SCH (17:33)
[2023-01-22] MEDS: Oxycodone HCl/Acetaminophen 5/325 MG TAB PO PRN ×2 (20:50→23:52)
[2023-01-22] MEDS ORDERED: OLANZapine 2.5 MG TAB PO SCH (21:00)
[2023-01-23] MEDS: CEFAZOLIN 1 GM in NA CHLORIDE 0.9% 50 ML IVPB SCH ×2 (00:49→08:53)
[2023-01-23] MEDS: HYDROCODONE/APAP 7.5/325 MG TAB PO PRN ×3 (01:10→13:02)
[2023-01-23 03:12] LABS: Hematocrit 32.5 % (36.0-45.0)
[2023-01-23] MEDS: PANTOPRAZOLE 40MG TABLET PO SCH ×2 (05:05→06:00)
[2023-01-23] MEDS: ENOXAPARIN 30 MG/0.3 ML SQ SCH ×2 (05:06→06:00)
[2023-01-23] MEDS: GABAPENTIN 300 MG CAP PO SCH ×2 (08:52→12:55)
[2023-01-23] MEDS: ALPRAZOLAM 1 MG TABLET PO SCH ×2 (08:55→13:00)
[2023-01-23] MEDS ORDERED: CITALOPRAM 10 MG TABLET PO SCH (09:00)
[2023-01-23] MEDS ORDERED: FEXOFENADINE 180 MG TAB PO SCH (09:00)
[2023-01-23] MEDS ORDERED: MONTELUKAST 10 MG TAB PO SCH (09:00)
[2023-01-23] MEDS ORDERED: CELECOXIB 100 MG CAPSULE PO SCH (09:00)
[2023-01-23 09:33] VITALS: O2SAT 96
[2023-01-23 12:32] VITALS: BP 119/68; TEMP 97.7
[2023-01-23] MEDS ORDERED: INFLUENZA VACCINE (for 6+ mo) 0.5 ML DOSE IMVAC ONE (14:00)
== END 2023-01-23 14:00 | disposition home health service (06) ==
LOC: OR 05:59 → 2ND 10:27
PROVIDERS: ADMIT Orthopaedic Surgery Sports Medicine; ATTEND Orthopaedic Surgery Sports Medicine
PROC: 0SRD069 Replacement of Left Knee Joint with Oxidized Zirconium on Polyethylene Synthetic Substitute, Cemented, Open Approach (ICD-10-PCS; principal; 2023-01-22 08:00)
DX: M17.12 Unilateral primary osteoarthritis, left knee (principal); M25.562 Pain in left knee
CPT/HCPCS: 31720; 36415; 71046; 80048; 85014; 85018; 85025; 85610; 85730; 88304; 88305; 88311; 93005; 94010; 97116; 97139; 97161; 97530; C1776; G0378; G0379; J0171; J0690; J1100; J1170; J1650; J2001; J2250; J2405; J2704; J3010; J3475; J7120